=== PATIENT | male | born 1955 | race Hispanic/Latino ===

== ENCOUNTER 2023-06-12 10:06 | Outpatient (CLI) | payer MEDICARE, BC | END 2023-06-12 10:07 | disposition home or self-care (01) | LOC: CSHRAD 10:06 | PROVIDERS: ATTEND Neurological Surgery | DX: M54.50 Low back pain, unspecified (principal); M47.816 Spondylosis without myelopathy or radiculopathy, lumbar region | CPT/HCPCS: 72100 ==